=== PATIENT | male | born 1990 | race African-American/Black ===

== ENCOUNTER 2018-09-05 22:09 | Emergency (ER) | payer OTHER ==
[2018-09-05 22:14] VITALS: BP 151/96; PULSE 70; TEMP 97.9; BMI 28.8
--- NOTE | 2018-09-05 23:12 | PDOC ---
*Physical Exam - Vital Signs Last Vital Signs Temp Pulse Resp BP Pulse Ox 97.9 F 70 18 151/96 100 09/05/18 22:12 09/05/18 22:12 09/05/18 22:12 09/05/18 22:12 09/05/18 22:12 Medical Decision Making - Medical Decision Making 09/05/18 23:11 Patient seen by the advanced practice provider under my direct supervision. Ancillary testing reviewed as necessary. I agree with plan as outlined by the advanced practice provider. *DC/Admit/Observation/Transfer Diagnosis at time of Disposition: Dysuria - Discharge Dispostion Disposition: HOME Condition at time of disposition: Stable - Referrals Schedule a call back: F/U GC/CT Referrals: Santiago Rick MD [Staff Physician] - - Patient Instructions Printed Discharge Instructions: DI for Dysuria -- Adult Additional Instructions: You will be contacted with lab results in a few days. increase fluid intake. Follow-up with referred urology is symptoms persists - Post Discharge Activity
--- NOTE | 2018-09-05 23:27 | PDOC ---
History of Present Illness - General Chief Complaint: Penile Drainage Stated Complaint: EVALUATION Time Seen by Provider: 09/05/18 23:07 History Source: Patient Exam Limitations: Clinical Condition - History of Present Illness Initial Comments: 09/05/18 23:23 Patient with no significant past medical history present with complaint of three -day history of burning to the penis and white penile discharge. Patient reported burning with urination as well and urine frequency. Patient is sexually active with one partner and does not always use condoms. Patient denies back pain, fever, nausea, vomiting. Patient denies any other symptoms Timing/Duration: other (3 days) Past History - Past Medical History Allergies/Adverse Reactions: Allergies Allergy/AdvReac Type Severity Reaction Status Date / Time No Known Allergies Allergy Verified 09/05/18 22:14 Asthma: Yes COPD: No - Suicide/Smoking/Psychosocial Hx Smoking History: Never smoked Review of Systems - Review of Systems Able to Perform ROS?: Yes Is the patient limited Irish proficient: No Constitutional: No: Fever HEENTM: No: Symptoms Reported Respiratory: No: Symptoms reported Cardiac (ROS): No: Symptoms Reported ABD/GI: No: Nausea, Vomiting, Abdominal cramping : Yes: See HPI, Burning, Dysuria, Discharge (white penile discharge), Frequency. No: Flank Pain, Hematuria, Urgency, Testicular Mass, Testicular Swelling, Lesions, Testicular Pain All Other Systems: Reviewed and Negative *Physical Exam - Vital Signs Last Vital Signs Temp Pulse Resp BP Pulse Ox 97.9 F 70 18 151/96 100 09/05/18 22:12 09/05/18 22:12 09/05/18 22:12 09/05/18 22:12 09/05/18 22:12 - Physical Exam General Appearance: Yes: Nourished, Appropriately Dressed. No: Apparent Distress HEENT: positive: Normal ENT Inspection Neck: positive: Supple Respiratory/Chest: positive: Lungs Clear. negative: Respiratory Distress, Accessory Muscle Use Cardiovascular: positive: Regular Rhythm, Regular Rate Gastrointestinal/Abdominal: positive: Flat, Soft. negative: Tender, Organomegaly, Pulsatile Mass Male Genitalia: positive: normal genitalia, other (no penile lesions or discharge). negative: discharge, testicular tenderness, testicular mass, epididymus tender, inguinal hernia, CVAT Musculoskeletal: positive: Normal Inspection Extremity: positive: Normal Inspection, Normal Range of Motion Neurologic: positive: Fully Oriented, Alert Moderate Sedation - Procedure Monitoring Vital Signs: Procedure Monitoring Vital Signs Temperature 97.9 F 09/05/18 22:12 Pulse Rate 70 09/05/18 22:12 Respiratory Rate 18 09/05/18 22:12 Blood Pressure 151/96 09/05/18 22:12 O2 Sat by Pulse Oximetry (%) 100 09/05/18 22:12 Medical Decision Making - Medical Decision Making 09/05/18 23:27 Patient with no significant past medical history present with complaint of three -day history of burning to the penis and white penile discharge. Patient reported burning with urination as well and urine frequency. Patient is sexually active with one partner and does not always use condoms. Clinical exam unremarkable with no pain no discharge or lesions. 09/05/18 23:33 UA and urine culture labs sent. Urine gonorrhea and chlamydia tests sent. Patient be treated empirically with ceftriaxone 250 mg IM and azithromycin 1 g by mouth for possible gonorrhea and chlamydia pending lab results. 09/06/18 00:55 UA shows no acute abnormality. Ceftriaxone and Azithromycin given by nurse. Patient stable for discharge with urology follow-up as needed *DC/Admit/Observation/Transfer Diagnosis at time of Disposition: Dysuria - Discharge Dispostion Disposition: HOME Condition at time of disposition: Stable Decision to Admit order: No - Referrals Schedule a call back: F/U GC/CT Referrals: Santiago Rick MD [Staff Physician] - - Patient Instructions Printed Discharge Instructions: DI for Dysuria -- Adult Additional Instructions: You will be contacted with lab results in a few days. increase fluid intake. Follow-up with referred urology is symptoms persists - Post Discharge Activity
[2018-09-05] MEDS ORDERED: AZITHROMYCIN 500 MG TABLET PO ONE (23:31)
[2018-09-06] MEDS ORDERED: AZITHROMYCIN 500 MG TABLET ONE (00:22)
[2018-09-06] MEDS ORDERED: WATER FOR INJ,STERILE 10 ML ONE (00:28)
[2018-09-06 00:31] LABS: URINE APPEARANCE SLCLOUDY; URINE BILIRUBIN NEGATIVE (<2.0 mg/dL); URINE COLOR STRAW; URINE GLUCOSE (UA) NEGATIVE (NEGATIVE); URINE KETONE NEGATIVE (NEGATIVE); URINE LEUK ESTERASE 3+ (NEGATIVE); URINE NITRITE NEGATIVE (NEGATIVE); URINE PROTEIN NEGATIVE (NEGATIVE); URINE UROBILINOGEN 4.0 E.U/dl mg/dL (0.2-1.0)
[2018-09-06 00:48] LABS: URINE BACTERIA FEW /hpf (NONE SEEN); URINE MUCUS RARE; YEAST MANY
== END 2018-09-06 01:00 | disposition home or self-care (01) ==
LOC: JERFT 22:09 → JER 22:09
DX: R30.0 Dysuria (principal)
CPT/HCPCS: 36415; 81003; 81015; 87086; 87491; 87591; 99281-25

== ENCOUNTER 2021-02-09 15:21 | Emergency (ER) | payer SELFPAY ==
[2021-02-09 15:30] VITALS: BP 145/94; PULSE 66; TEMP 97; BMI 29.0
[2021-02-09 18:34] LABS: HIV INTERPRETATION NEGATIVE (NEGATIVE)
== END 2021-02-09 18:39 | disposition home or self-care (01) ==
LOC: JERFT 15:21
DX: A63.0 Anogenital (venereal) warts (principal)
CPT/HCPCS: 36415; 80074; 86780; 87389; 87491; 87591; 87661; 99283-25